=== PATIENT | female | born 1975 | race African-American/Black ===

== ENCOUNTER 2017-08-17 08:02 | Day surgery (SDC) | payer MEDICARE ==
[~2017-08-17] VITALS: Ht 167.6 cm; Wt 59.0 kg
--- NOTE | ~2017-08-17 | OP ---
PATIENT NAME: FRANCIS FELICIANO MEDICAL RECORD: [id number] :73 LOCATION:D.OPS ADMISSION DATE: SURGEON: CARMELA AVILES MD DATE OF OPERATION: 08/17/2017 REFERRING PHYSICIAN: Jim Melo MD SURGEON: Carmela Aviles MD ANESTHESIA: General with LMA per [employer]. PREOPERATIVE DIAGNOSES: Symptomatic reducible initial umbilical hernia and end-stage renal disease and dependence on peritoneal dialysis. POSTOPERATIVE DIAGNOSES: Symptomatic reducible initial umbilical hernia and end-stage renal disease and dependence on peritoneal dialysis. OPERATIONS PERFORMED: Ultrasound and fluoroscopy guided insertion of a right internal jugular 19-cm long tunneled HemoSplit dialysis catheter and open mesh repair of umbilical hernia using a 4.[address] mesh. PREOPERATIVE NOTE: Ms. Feliciano is a 42-year-old -[place] female on hemodialysis. She has been on hemodialysis for a number of years, but has recently been doing well with peritoneal dialysis. She has developed a quite symptomatic reducible umbilical hernia, for which she is brought to the hospital for repair. We plan to repair the hernia with mesh and allow approximately a month for it to heal before she resume the peritoneal dialysis. This will mean she needs to switch to hemodialysis in the interim. 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 She did have a fistulogram back in April of last year, which demonstrated a patent graft other than a venous anastomotic stenosis, which was treated at that time. I do not believe she has been dialyzed with this AV graft since then and on physical examination, the pulsation and thrill over this graft was quite weak and I think it would be difficult to stick and so since this patient will have to have hemodialysis starting tomorrow, she is going to have a HemoSplit catheter implanted and we will not do anything today with her AV graft. DESCRIPTION OF PROCEDURE: With patient under general anesthesia with LMA per [employer], she was placed in supine Trendelenburg position with the head turned to the left and prepped and draped in a sterile manner. Scars from prior catheters were noted. Duplex ultrasound examination though revealed the right internal jugular vein to be present and of normal caliber and completely compressible. I made an incision over at the base of the neck and inserted a needle and guidewire under fluoroscopic and ultrasound visualization and then under fluoroscopy, passed dilators over the guidewire and lastly a dilator Peel-Away introducer sheath was placed with its tip in the superior vena cava. I chose a 19-cm HemoSplit catheter and identified an exit site. I made an incision there with an 11-blade scalpel and then pulled the catheter through a short subcutaneous tunnel up to the cervical wound. That catheter was then inserted as the Peel-Away sheath was removed. Fluoroscopy revealed satisfactory positioning of the catheter deep in the right atrium and no evidence or other complication. The catheter 2 lumens were accessed and aspirated, free return of blood confirmed. They were then flushed with saline and lastly with heparin lock solution, 100 units per cc. OPERATIVE REPORT [id number] FRANCIS FELICIANO The patient's cervical wound was closed with interrupted inverted 3-0 Vicryl and Dermabond glue. The catheter was sutured to the skin near the exit site with 2-0 Prolene and a sterile dressing applied there including a chlorhexidine impregnated Biopatch. The patient then was completely reprepped and redraped for the second part of our operation. A smiley-face transverse curved incision was placed beneath the umbilicus, and sharp and blunt dissection carried out down to the linea alba and rectus sheath. The hernia sac was dissected circumferentially and then dissected away from the overlying umbilical skin. The sac was resected flush with the linea alba and the strong margin of tissue surrounding it. I chose a 4.[address] patch. This was placed in the wound with the anti-adhesion side facing the viscera. It was slowly deployed under the anterior abdominal wall and the incision was then approximated transversely with interrupted vertical mattress sutures of 0 Vicryl, which included the anterior mesh portion of the Ventralex patch. The long tape was divided and discarded and the wound irrigated with Ancef and gentamicin solution and then infiltrated with 0.25% Marcaine without epinephrine. Skin was closed with interrupted inverted 3-0 Vicryl, which incorporated bites of the tissue at the base of the wound to help provide stability to the upper layers. The skin was closed with running intracuticular 4-0 Monocryl and Dermabond glue. It was dressed with Maxorb Ag, then Adaptic and then cotton balls moistened with gentamicin and Ancef solution and then over that, dry 4 x 4s and then MediPort tape with skin protectant. The patient at that point then was awakened and taken to the recovery room in stable condition. Blood loss during the operation was essentially 0, none was replaced of course. All sponges, instruments, and needles were accounted for. No drain was used. The surgical specimen was submitted for histopathology consistent with the hernia sac. We will plan for the patient to go home today. We will see that she has an abdominal binder to wear for comfort and she is instructed to use ice off and on to the periumbilical area as well as the neck for comfort and to diminish swelling and bruising. She should keep her head elevated and the head of her bed elevated if possible this evening, resuming normal activities and positions, etc. tomorrow. She should present to her dialysis unit for hemodialysis via her new HemoSplit catheter tomorrow morning. She is given a prescription for [facility] 5/325. She can take 1 or if necessary 2 p.o. q.4 hours p.r.n. pain. She was given 20. TRANSINT:[id number] Voice Confirmation ID: [id number] DOCUMENT ID: [id number] CARMELA AVILES MD at 1511 CC: CHARLA MELO MD [id number] DICTATION DATE: 08/17/17 1411 GEOSPATIAL INFORMATION SCIENTIST: 08/17/17 1544 [facility] 08/17/[address] [facility] [address] [place] [address]
[~2017-08-17 08:02] MED LIST: ASPIRIN81 MG PO; BAYER CHEWABLE81 MG PO; CARAFATE1 G/10 ML PO; CLARITIN 10 MG10 MG PO; EPOGEN10000 U/ML SQ; KLONOPIN1 MG PO; METOPROLOL TAR100 M1 PO; NEXIUM40 MG PO; NORVASC10 MG PO; PLAVIX75 MG PO; PROTONIX40 MG PO; RENVELA800 MG PO; VANCOCIN HCL250 MG PO; VASOTEC20 MG PO; VASOTEC5 MG PO; VIBRAMYCIN 100100 MG PO
[2017-08-17] MEDS ORDERED: KLONOPIN1 MG PO (09:12)
[2017-08-17] MEDS ORDERED: HYDRALAZINE HCL50 MG PO (09:13)
[2017-08-17] MEDS ORDERED: PHENERGAN25 M1 PO (09:16)
[2017-08-17] MEDS ORDERED: RENVELA800 MG PO (09:18)
[2017-08-17] MEDS ORDERED: SENSIPAR30 MG PO (09:19)
[2017-08-17 09:29] VITALS: Ht 167.6 cm; Wt 59.0 kg
[2017-08-17 10:13] LABS: BASOPHILS 0.4 % (0-2); EOSINOPHILS 5.7 % (0-7); HEMATOCRIT 31.5 % (36.0-48.0); HEMOGLOBIN 10.3 g/dL (12-16); IMMATURE GRANULOCYTES 0.4 % (0-5); LYMPHOCYTES 21.5 % (15-50); MCH 29.3 pg (26.0-34.0); MCHC 32.7 g/dL (31.0-37.0); MCV 89.5 fL (80.0-100.0); MEAN PLATELET VOLUME 10.4 fL (7.4-10.4); MONOCYTES 6.2 % (2-11); NEUTROPHILS 65.8 % (40-80); RBC 3.52 10x6/uL (4.00-5.40); RDW 15.1 % (11.5-14.5); WBC 5.5 10x3/uL (4.8-10.8)
[2017-08-17 10:15] LABS: PLATELET COUNT 116 10x3/uL (130-400)
[2017-08-17 10:22] LABS: ANION GAP 11.3 mmol/L (8-16); APTT 26.8 SECONDS (22.8-39.4); CALCIUM 8.8 mg/dL (8.5-10.1); CARBON DIOXIDE 33.3 mmol/L (21.0-32.0); CREATININE - SERUM 15.6 mg/dL (0.6-1.3); INR 0.91 (0.85-1.17); POTASSIUM - SERUM 4.6 mmol/L (3.5-5.1); PROTIME 11.9 SECONDS (11.6-15.0)
[2017-08-17 10:23] LABS: HCG SERUM NEGATIVE (NEGATIVE)
[2017-08-17] MEDS ORDERED: HYDROCODON-ACE1 EAC7 PO (13:50)
== END 2017-08-17 16:45 | disposition home or self-care (01) ==
LOC: D.OPS 08:02
PROVIDERS: Anesthesiology; Internal Medicine Nephrology
DX: K42.9 Umbilical hernia without obstruction or gangrene (principal); N18.6 End stage renal disease; Z99.2 Dependence on renal dialysis; T82.590A Other mechanical complication of surgically created arteriovenous fistula, initial encounter; Z01.812 Encounter for preprocedural laboratory examination